=== PATIENT | female | born 1985 | race Caucasian/White ===

== ENCOUNTER → 2020-05-17 08:50 | Outpatient (BNVA) | payer OTHER, SELFPAY | PROVIDERS: PCP Internal Medicine; Referring Provider Internal Medicine; Visit Provider Student in an Organized Health Care Education/Training Program ==

== ENCOUNTER 2020-06-03 13:02 | Outpatient (REF) | payer OTHER, SELFPAY ==
--- NOTE | ~2020-06-03 | XR_ITS ---
EXAMINATION: BILATERAL HAND AND WRIST X-RAYS CLINICAL INFORMATION: Pain COMPARISON: Previous x-ray May 2018 TECHNIQUE: 4 views of both hands and wrists FINDINGS: Bone alignment is normal. No fracture or dislocation is seen. Joint spaces are normal. Sclerotic densities in the distal phalanx of the left third finger appear unchanged. Soft tissues are normal. XR/XR hand wrist LT IMPRESSION: Normal right hand. Stable sclerotic densities in the distal phalanx of the left third finger probably representing bone islands.
--- NOTE | ~2020-06-03 | XR_ITS ---
EXAMINATION: BILATERAL HAND AND WRIST X-RAYS CLINICAL INFORMATION: Pain COMPARISON: Previous x-ray May 2018 TECHNIQUE: 4 views of both hands and wrists FINDINGS: Bone alignment is normal. No fracture or dislocation is seen. Joint spaces are normal. Sclerotic densities in the distal phalanx of the left third finger appear unchanged. Soft tissues are normal. XR/XR hand wrist RT IMPRESSION: Normal right hand. Stable sclerotic densities in the distal phalanx of the left third finger probably representing bone islands.
[2020-06-03 13:25] LABS: MANUAL DIFF FLAG NO
[2020-06-03 13:29] LABS: Basophils Absolute Auto 0.1 X10*3/uL (0.0-0.2); Basophils Percent Auto 0.9 % (0-2); Eosinophils Absolute Auto 0.1 X10*3/uL (0.0-0.4); Hematocrit 38.4 % (37-47); Hemoglobin 12.8 g/dl (12.0-16.0); Imm Gran Abs Auto 0.03 X10*3/uL (0.00-0.03); Imm Gran Pct Auto 0.4 % (0.0-0.4); Lymphocytes Absolute Auto 2.6 X10*3/uL (1.2-4.9); Lymphocytes Percent Auto 33.5 % (20-40); Mean Corpuscular HGB Conc 33.3 g/dl (31.0-35.0); Mean Corpuscular Hemoglobin 31.1 pg (27.0-33.0); Mean Corpuscular Volume 93.4 fL (80-98); Mean Platelet Volume 8.8 fL (9.4-12.3); Monocytes Absolute Auto 0.5 X10*3/uL (0.1-1.2); Monocytes Percent Auto 6.8 % (2-11); Neutrophils Absolute Auto 4.4 X10*3/uL (2.0-8.3); Neutrophils Percent Auto 57.4 % (45-73); Platelet Count 343 X10*3/uL (160-400); Red Blood Count 4.11 X10*6/uL (4.20-5.50); Red Cell Distribution Width 12.6 % (11.0-16.0); White Blood Count 7.7 X10*3/uL (4.8-10.8)
[2020-06-03 14:00] LABS: Alanine Aminotransferase 10 U/L (0-31); Albumin Level 4.5 g/dL (3.5-5.0); Alkaline Phosphatase 47 U/L (39-117); Anion Gap 10 (12-20); Aspartate Amino Transferase 14 U/L (5-31); Bilirubin Total 0.7 mg/dL (0.0-1.0); Blood Urea Nitrogen 11 mg/dL (9-16); C Reactive Protein 0.06 mg/dL (< or = 0.50); Carbon Dioxide 27 mmol/L (22-29); Chloride 106 mmol/L (96-108); Estimated Glomerular Filt Rate > 60; Glucose Random 95 mg/dL (60-115); Potassium 3.8 mmol/L (3.3-5.1); Sodium 139 mmol/L (135-145); Total Protein 7.2 g/dL (6.5-8.0)
[2020-06-03 14:28] LABS: Erythrocyte Sedimentation Rate 2 MM/HR (0-20)
== END 2020-06-03 13:03 | disposition home or self-care (01) ==
LOC: HO.LAB 13:02
PROVIDERS: PCP Internal Medicine; Visit Provider Student in an Organized Health Care Education/Training Program
DX: M25.50 Pain in unspecified joint (principal)
CPT/HCPCS: 36415; 73110; 73130; 80053; 85025; 85652; 86140